=== PATIENT | female | born 1970 | race Caucasian/White ===

== ENCOUNTER 2018-09-26 10:06 | Emergency (ER) | payer BC ==
[2018-09-26] MEDS ORDERED: IPRATROPIUM/ALBUTEROL (0.5MG/3MG) NEB INH ONE (11:19)
--- NOTE | 2018-09-26 11:22 | Emergency Department Record ---
History of Present Illness - General Chief Complaint: Shortness of breath Stated Complaint: BRONCHITIS Time Seen by Provider: 09/26/18 11:05 Source: Patient Mode of Arrival: Ambulatory Limitations: No limitations - History of Present Illness Initial Comments: The patient is here due to an 8 day hx of cough, congestion and now SOB. She does have a hx of asthma when she gets a URI and she now has been coughing for 8 days. She did see her PCP who placed her on Singulair but it is getting worse. The patient denies any fever, chills, CP, RANGEL, or back pain. MD Complaint: Cough, Shortness of breath Onset/Timin -: Days(s) Improves With: Nothing Worsens With: Nothing Known History Of: Asthma, Other - Related Data Home Medications Medication Instructions Recorded Confirmed Last Taken Fexofenadine HCl [Meera Allergy] 180 mg PO DAILY 09/26/18 09/26/18 09/26/18 Montelukast Sodium [Singulair] 10 mg PO DAILY 09/26/18 09/26/18 09/26/18 Multivitamin [Multiple Vitamins] 1 each PO DAILY 09/26/18 09/26/18 09/26/18 Previous Rx's Medication Instructions Recorded Albuterol Sulfate [Proair Hfa] 2 puff IH QID PRN #1 inhaler 09/26/18 Doxycycline Monohydrate [Mondoxyne 100 mg PO BID 7 Days #14 capsule 09/26/18 Nl] Prednisone [Prednisone 20Mg] 40 mg PO DAILY #10 tab 09/26/18 Allergies Allergy/AdvReac Type Severity Reaction Status Date / Time gluten AdvReac DIARRHEA Verified 09/26/18 10:45 lactase [From Dairy Aid] AdvReac DIARRHEA Verified 09/26/18 10:45 Travel Screening - Travel/Exposure Within Last 30 Days Have you traveled within the last 30 days?: No - Travel/Exposure Within Last Year Have you traveled outside the [place] in the last year?: No - Additonal Travel Details Have you been exposed to anyone with a communicable illness?: No - Travel Symptoms Symptom Screening: None Review of Systems Constitutional: Reports: Malaise. Denies: Chills, Fever Eyes: Denies: Eye discharge ENT: Reports: Congestion Respiratory: Reports: Cough. Denies: Dyspnea Cardiovascular: Denies: Arrhythmia, Chest pain Endocrine: Reports: Fatigue Gastrointestinal: Denies: Diarrhea Genitourinary: Denies: Dysuria Musculoskeletal: Denies: Arthralgia Skin: Denies: Bruising Past Medical History - SOCIAL HISTORY Smoking Status: Former smoker Alcohol Use: None Drug Use: None - RESPIRATORY Hx Respiratory Disorders: Yes Hx Asthma: Yes Hx Bronchitis: Yes Hx Pneumonia: Yes - CARDIOVASCULAR Hx Cardio Disorders: Yes Hx Irregular Heartbeat: Yes Hx Palpitations: Yes Comment:: hypocardiomyaopathy - NEURO Hx Neuro Disorders: No - GI Hx GI Disorders: Yes Hx Irritable Bowel: Yes - Hx Genitourinary Disorders: No - ENDOCRINE Hx Endocrine Disorders: No - MUSCULOSKELETAL Hx Musculoskeletal Disorders: Yes - PSYCH Hx Psych Problems: No - HEMATOLOGY/ONCOLOGY Hx Hematology/Oncology Disorders: No Family Medical History Any Significant Family History?: No Physical Exam - General General Appearance: Alert, Oriented x3, Cooperative, No acute distress - Head Head exam: Atraumatic, Normocephalic, Normal inspection - Eye Eye exam: Normal appearance, PERRL, EOMI - ENT Throat exam: Normal inspection. negative: Tonsillar erythema, Tonsillar exudate - Neck Neck exam: Normal inspection, Full ROM. negative: Tenderness - Respiratory Respiratory exam: Normal lung sounds bilaterally. negative: Rales, Respiratory distress, Rhonchi, Stridor, Wheezes - Cardiovascular Cardiovascular Exam: Regular rate, Normal rhythm, Normal heart sounds - GI/Abdominal GI/Abdominal exam: Soft, Normal bowel sounds. negative: Tenderness - Extremities Extremities exam: Normal inspection, Full ROM, Normal capillary refill. negative: Tenderness - Neurological Neurological exam: Alert. negative: Motor sensory deficit Course Vital Signs 09/26/18 10:34 Temperature 97.8 F Pulse Rate 93 H Respiratory 16 Rate Blood Pressure 168/126 Pulse Ox 96 - Reevaluation(s) Reevaluation #1: The patient is doing very well at this time. She states her cough is improved and she no longer is SOB. On exam her lungs are clear with no wheezing. We will place the patient on an oral Abx along with an inhaller and Prednisone. She is to see her PCP next week for recheck. 09/26/18 12:24 Medical Decision Making - Data Complexity MDM Data: X-Ray Ordered and/or Reviewed - Radiology Data Radiology results: Report reviewed (CXR: Neg.) Disposition Disposition: Discharge Clinical Impression: Asthmatic bronchitis Qualifiers: Asthma severity: mild Asthma persistence: intermittent Asthma complication type : uncomplicated Qualified Code(s): J45.20 - Mild intermittent asthma, uncomplicated Disposition: Home, Self-Care Condition: (2) Stable Instructions: Dyspnea (ED) Additional Instructions: Please take the medicines as directed and see your doctor next week as directed. Return to the ER for any worsening symptoms. Prescriptions: Albuterol Sulfate [Proair Hfa] 2 puff IH QID PRN #1 inhaler PRN Reason: Cough And Difficulty Breathing Doxycycline Monohydrate [Mondoxyne Nl] 100 mg PO BID 7 Days #14 capsule Prednisone [Prednisone 20Mg] 40 mg PO DAILY #10 tab Forms: Patient Portal Access Time of Disposition: 12:26 Quality - Quality Measures Quality Measures: N/A - Blood Pressure Screening View Details: Yes Does Patient Have Any of the Following: No Blood Pressure Classification: Hypertensive Reading Systolic Measurement: 168 Diastolic Measurement: 99 Screening for High Blood Pressure: < First Hypertensive BP, F/U Documented > [ [id number]] First Hypertensive Follow-up Interventions: Referral to alternative/primary care provider.
--- NOTE | 2018-09-28 05:36 | RADIOLOGY REPORT ---
DATE: 09/26/2018. EXAM: TWO VIEWS OF THE CHEST. HISTORY: The patient has a cough. TECHNIQUE: Two views of the chest were provided without comparison examination. FINDINGS: The cardiomediastinal silhouette is within normal limits for size and contour. The kellen appear unremarkable. There is no radiographic evidence of a focal infiltrate, pleural effusion, or pneumothorax IMPRESSION: NO RADIOGRAPHIC EVIDENCE OF AN ACUTE INTRATHORACIC PROCESS. Job Number: [id number] MTDD
== END 2018-09-26 12:36 | disposition home or self-care (01) ==
LOC: ER 10:06
DX: J45.20 Mild intermittent asthma, uncomplicated (principal); R06.02 Shortness of breath; Z87.891 Personal history of nicotine dependence
CPT/HCPCS: 71046; 94640; 99283; 99284